=== PATIENT | male | born 1985 | race Two or more races ===

== ENCOUNTER 2020-04-27 17:07 | Emergency (ER) | payer OTHER ==
[~2020-04-27] VITALS: Ht 175.3 cm; Wt 104.3 kg
[2020-04-27] MEDS ORDERED: NEOMY/BACITRA/POLYMYXIN B OINT UD PACKET TP ONE ×2 (17:30→17:33)
--- NOTE | 2020-04-27 17:32 | NUR ---
Patient discharged to home in stable condition. Written and verbal after care instructions given. Patient verbalizes understanding of instructions. Stressed follow up or return to ER for worsening s/s.
== END 2020-04-27 17:35 | disposition home or self-care (01) ==
LOC: ER 17:07
DX: T20.26XA Burn of second degree of forehead and cheek, initial encounter (principal); T20.16XA Burn of first degree of forehead and cheek, initial encounter; T31.0 Burns involving less than 10% of body surface; W40.1XXA Explosion of explosive gases, initial encounter; Y92.89 Other specified places as the place of occurrence of the external cause; Z86.19 Personal history of other infectious and parasitic diseases
CPT/HCPCS: A4663

== ENCOUNTER 2021-02-18 20:11 | Emergency (ER) | payer OTHER ==
[~2021-02-18] VITALS: Ht 175.3 cm; Wt 108.9 kg
[2021-02-18] MEDS ORDERED: CEFTRIAXONE 1 G in IV DEXTROSE 5% 50 ML IV ONE (21:15)
[2021-02-18] MEDS ORDERED: VANCOMYCIN IV 1,000 MG in IV DEXTROSE 5% 250 ML IV ONE (21:15)
[2021-02-18] MEDS ORDERED: NEOMY/BACITRA/POLYMYXIN B OINT UD PACKET TP ONE ×2 (21:15→21:30)
--- NOTE | 2021-02-18 21:20 | NUR ---
gastrointestinal technician in room to take x-ray.
[2021-02-18] MEDS ORDERED: VANCOMYCIN IV 200 ML ONE (21:30)
[2021-02-18] MEDS ORDERED: CEFTRIAXONE /D5W 50ML IVPB **ER PYXIS IV ONE (21:31)
--- NOTE | 2021-02-18 23:00 | NUR ---
Patient is resting upright on bed, no acute distress is noted at this time.
[2021-02-18] MEDS ORDERED: SULF1TAB48 PO (23:20)
--- NOTE | 2021-02-19 | NUR ---
Patient is on cell phone, resting upright on his bed. No acute distress is noted at this time.
--- NOTE | 2021-02-19 00:25 | NUR ---
No adverse reactions were noted throughout the patient's visit with administration of antibiotics.
[2021-02-19 00:30] VITALS: BP 132/72
--- NOTE | 2021-02-19 00:30 | NUR ---
Patient discharged to home in stable condition. Written and verbal after care instructions given. Patient verbalizes understanding of instructions. Stressed follow up or return to ER for worsening s/s. Patient ambulates with steady gait, V/S stable, received paper Rx, left with all personal belongings.
== END 2021-02-19 00:30 | disposition home or self-care (01) ==
LOC: ER 20:13
DX: L03.116 Cellulitis of left lower limb (principal); Z86.19 Personal history of other infectious and parasitic diseases; F19.10 Other psychoactive substance abuse, uncomplicated
CPT/HCPCS: 73590; 87070; 96365; 96366; 96367; 99284; J0696; J3370; A4217; A4663

== ENCOUNTER 2021-06-06 06:24 | Emergency (ER) | payer OTHER ==
[~2021-06-06] VITALS: Ht 175.3 cm; Wt 113.4 kg
[~2021-06-06 06:24] MED LIST: SULF1TAB48 PO
[2021-06-06] MEDS ORDERED: IBUPROFEN 600 MG TABLET PO ONE (06:45)
[2021-06-06] MEDS ORDERED: IBUPROFEN 600 MG TABLET ONE (06:57)
[2021-06-06 07:46] LABS: HEMATOCRIT 39.3 % (36.7-47.1); MEAN CORPUSCULAR HEMOGLOBIN 27.8 uug (23.8-33.4); MEAN CORPUSCULAR VOLUME 83.3 fL (73.0-96.2); PLATELET COUNT (AUTO) 262 K/uL (152-348)
[2021-06-06 07:51] LABS: CREATININE 0.8 mg/dL (0.6-1.3); POTASSIUM 4.1 mmol/L (3.5-5.1)
[2021-06-06] MEDS ORDERED: SULFAMETH/TRIMETH 800/160 MG TABLET PO ONE (08:00)
[2021-06-06] MEDS ORDERED: SULF1TAB48 PO (08:09)
[2021-06-06] MEDS ORDERED: IBUP-1955 PO (08:09)
[2021-06-06] MEDS ORDERED: SULFAMETH/TRIMETH 800/160 MG TABLET ONE (08:19)
[2021-06-06 09:08] VITALS: BP 138/70
== END 2021-06-06 08:45 | disposition home or self-care (01) ==
LOC: ER 06:26
DX: L03.116 Cellulitis of left lower limb (principal); L97.221 Non-pressure chronic ulcer of left calf limited to breakdown of skin; R03.0 Elevated blood-pressure reading, without diagnosis of hypertension; F17.210 Nicotine dependence, cigarettes, uncomplicated; Z86.19 Personal history of other infectious and parasitic diseases
CPT/HCPCS: 36415; 73590; 85025; A4217; A4663

== ENCOUNTER 2021-06-08 20:45 | Emergency (ER) | payer OTHER ==
[~2021-06-08] VITALS: Ht 175.3 cm; Wt 111.1 kg
[~2021-06-08 20:45] MED LIST changes: +IBUP-1955 PO
[2021-06-08] MEDS ORDERED: SULFAMETH/TRIMETH 800/160 MG TABLET PO ONE (23:45)
[2021-06-08] MEDS ORDERED: SULF1TAB48 PO (23:50)
[2021-06-08] MEDS ORDERED: SULFAMETH/TRIMETH 800/160 MG TABLET ONE (23:55)
--- NOTE | 2021-06-09 | NUR ---
Pt refused last set of vitals and desires to leave as soon as possible.
--- NOTE | 2021-06-09 00:05 | NUR ---
First contact. instructed to discharge patient. Pt [id number] with abc's intact. ambulatory with steady gait. stressed the importance of f/u appointment with pcp and to fill prescription aden. Circled address and pt admitted to understanding d/c instructions.
== END 2021-06-09 00:06 | disposition home or self-care (01) ==
LOC: ER 20:46
DX: L03.116 Cellulitis of left lower limb (principal); Z76.0 Encounter for issue of repeat prescription; Z86.19 Personal history of other infectious and parasitic diseases
CPT/HCPCS: A4663